=== PATIENT | female | born 1955 | race Hispanic/Latino ===

== ENCOUNTER → 2018-03-26 | Outpatient (CLI) | payer BC | END | disposition home or self-care (01) | LOC: RAH 07:23 | DX: R92.2 Inconclusive mammogram (principal); Z80.3 Family history of malignant neoplasm of breast | CPT/HCPCS: 77066 ==

== ENCOUNTER → 2018-06-17 | Outpatient (CLI) | payer BC | END | disposition home or self-care (01) | LOC: SHCH 13:46 | PROVIDERS: ATTEND Internal Medicine Cardiovascular Disease | DX: R06.02 Shortness of breath (principal); R00.2 Palpitations | CPT/HCPCS: 93306 ==

== ENCOUNTER → 2018-06-18 | Outpatient (CLI) | payer BC ==
[~2018-06-18] MED LIST: REGADENOSON 0.4 MG/5 ML PF SYG IVP SCH
== END | disposition home or self-care (01) ==
LOC: SHCH 08:43
PROVIDERS: ATTEND Internal Medicine Cardiovascular Disease
DX: I48.91 Unspecified atrial fibrillation (principal)
CPT/HCPCS: 78452; 93017; 96374; A9500 ×2

== ENCOUNTER 2018-07-01 05:45 | Day surgery (SDC) | payer BC ==
[2018-06-28 16:14] VITALS: BP 149/66
[2018-06-28 16:21] LABS: BASOPHILS % (AUTO) 0.3 % (0.0-5.0); EOSINOPHILS % (AUTO) 1.7 % (0.0-8.0); HEMATOCRIT 36.9 % (36-48); LYMPHOCYTES % (AUTO) 23.4 % (21.0-51.0); MEAN CORPUSCULAR HEMOGLOBIN 29.6 pg (27.0-33.0); MEAN CORPUSCULAR HGB CONC 33.7 g/dL (32.0-36.0); MEAN CORPUSCULAR VOLUME 87.8 fL (79-99); MONOCYTES % (AUTO) 7.5 % (3.0-13.0); NEUTROPHILS % (AUTO) 67.1 % (40.0-77.0); PLATELET COUNT (AUTO) 185 K/uL (130-400); RED CELL DISTRIBUTION WIDTH 13.1 % (11.0-15.5); WHITE BLOOD COUNT (AUTO) 5.5 K/uL (4.8-10.8)
[2018-06-28 16:30] LABS: CREATININE 0.8 mg/dL (0.5-1.5); POTASSIUM 3.8 mmol/L (3.5-5.1)
[2018-06-28 16:30] LABS: APPEARANCE,URINE Clear (CLEAR); BILIRUBIN,URINE Negative (NEGATIVE); COLOR,URINE Yellow (YELLOW); GLUCOSE, URINE (UA) Negative (NEGATIVE); KETONES,URINE Negative (NEGATIVE); LEUKOCYTE ESTERASE ,URINE Trace (NEGATIVE); NITRATE,URINE Negative (NEGATIVE); OCCULT BLOOD,URINE Negative (NEGATIVE); PH,URINE 6.5 (5.0-8.0); PROTEIN,URINE Negative (NEGATIVE); UROBILINOGEN,URINE 0.2 mg/dL (0.2-1.0)
[2018-06-28 16:34] LABS: INR 0.99 (0.85-1.15); PARTIAL THROMBOPLASTIN TIME 29.6 SEC (26.3-35.5); PROTHROMBIN TIME 10.4 SEC (9.6-11.6)
[2018-06-28 17:02] LABS: BACTERIA,URINE None Seen /HPF (None Seen); RBC,URINE 0-1 /HPF (0-1); SQUAMOUS EPITHELIAL CELL,UR None Seen /HPF (0-2); WBC,URINE 0-1 /HPF (0-1)
[~2018-07-01] VITALS: Ht 165.1 cm; Wt 63.9 kg
[2018-07-01] VITALS (9 sets, daily range): BP systolic 103–146; BP diastolic 54–71
[~2018-07-01 05:45] MED LIST changes: +LEVO75TA4 PO; +LORA1TAB3 PO; +PLEC3TAB PO; -REGADENOSON 0.4 MG/5 ML PF SYG IVP SCH; +ROSU10TA PO; +VITA-300 PO
[2018-07-01] MEDS ORDERED: SODIUM CHLORIDE 0.9% 1000ML 1,000 ML IV ONE (06:15)
--- NOTE | 2018-07-01 07:08 | NUR ---
ASSESSMENT PT HERE FOR PROCEDURE. PT VERY ANXIOUS. HAS REDNESS TO LEFT EYE. STATES " BLEW NOSE YESTERDAY AND THIS HAPPENED."
[2018-07-01] MEDS ORDERED: IOHEXOL-350 50ML VIAL IV ONE (07:18)
[2018-07-01] MEDS ORDERED: IOHEXOL 350 MG/ML 100ML INFUS..BTL IV ONE (07:18)
[2018-07-01] MEDS ORDERED: LIDOCAINE HCL 2% 20ML ONE (07:18)
--- NOTE | 2018-07-01 07:20 | NUR ---
PROCEDURE PT TAKEN TO PROCEDURE VIA BED BY Adali DOUGLAS RN. SISTER IN ROOM.
[2018-07-01] MEDS ORDERED: MIDAZOLAM HCL 1 MG/ML 2ML VIAL ONE (07:33)
--- NOTE | 2018-07-01 08:10 | NUR ---
ASSESSMENT RECEIVED PT FROM Adali DOUGLAS RN. PT LYING FLAT. SITE TO RIGHT GROIN SOFT TO TOUCH. NO BLEEDING, OOZING NOTED TO SITE. INSTRUCTED ON IMPORTANCE OF KEEPING RIGHT LEG STRAIGHT AND NOT LIFTING HEAD OFF OF BED. SISTER AT BEDSIDE. BOTH VERBALIZED UNDERSTANDING.
--- NOTE | 2018-07-01 09:15 | NUR ---
PAIN PT STATES AFTER SHE ATE SHE FEELS HEAVINESS TO MIDEPIGASTRIC. STATES SHE FEELS LIKE THAT AFTER SHE EATS. NO SOB, CHEST PAIN, EKG CHANGES NOTED. INFORMED DR. GUO. NO ORDERS RECEIVED.
--- NOTE | 2018-07-01 10:31 | NUR ---
DISCHARGE ORAL AND WRITTEN DISCHARGE INSTRUCTIONS GIVEN TO PT AND PTS SISTER. BOTH VERBALIZED UNDERSTANDING. NO OTHER QUESTIONS AT THIS TIME.
--- NOTE | 2018-07-01 12:00 | NUR ---
DISCHARGE ORAL AND WRITTEN DISCHARGE INSTRUCTIONS GIVEN. PT WHEELED OUT TO CAR. SITE SOFT TO TOUCH TO RIGHT GROIN. DISCHARGED.
== END 2018-07-01 12:00 | disposition home or self-care (01) ==
LOC: DAH 05:45
PROVIDERS: ATTEND Internal Medicine Cardiovascular Disease
DX: I20.8 Other forms of angina pectoris (principal); R07.9 Chest pain, unspecified; E78.00 Pure hypercholesterolemia, unspecified; Z79.899 Other long term (current) drug therapy; F41.9 Anxiety disorder, unspecified; Z98.890 Other specified postprocedural states; E78.5 Hyperlipidemia, unspecified
CPT/HCPCS: 36415; 71045; 80048; 81001; 85025; 85610; 85730; 93005; 93458; A4606; C1760; C1894; J1644; J2250; J3490; J7030; Q9965; Q9967 ×2; 99156; 99157

== ENCOUNTER → 2019-03-27 | Outpatient (CLI) | payer BC ==
[~2019-03-27] MED LIST changes: -ROSU10TA PO; +ROSU10TA22 PO
== END | disposition home or self-care (01) ==
LOC: RAH 08:12
DX: R92.2 Inconclusive mammogram (principal); Z80.3 Family history of malignant neoplasm of breast
CPT/HCPCS: 77066

== ENCOUNTER → 2020-04-23 | Outpatient (CLI) | payer BC ==
[~2020-04-23] MED LIST changes: -PLEC3TAB PO; +PLEC3TAB2 PO
== END | disposition home or self-care (01) ==
LOC: RAH 09:59
DX: R92.2 Inconclusive mammogram (principal); Z80.3 Family history of malignant neoplasm of breast; N64.4 Mastodynia; N64.89 Other specified disorders of breast
CPT/HCPCS: 77066

== ENCOUNTER → 2022-09-08 | Outpatient (CLI) | payer MEDICARE | END | disposition home or self-care (01) | LOC: CANPRECLI → SHCH 07:33 | PROVIDERS: ATTEND Internal Medicine Cardiovascular Disease | DX: I71.40 Abdominal aortic aneurysm, without rupture, unspecified (principal) | CPT/HCPCS: 93978 ==

== ENCOUNTER 2023-01-23 20:37 | Emergency (ER) | payer MEDICARE ==
[~2023-01-23] VITALS: Ht 165.1 cm; Wt 62.6 kg
[2023-01-23 20:56] LABS: BASOPHILS # (AUTO) 0.03 K/uL (0.00-0.20); BASOPHILS % (AUTO) 0.2 % (0.0-5.0); EOSINOPHILS # (AUTO) 0.04 K/uL (0.00-0.70); EOSINOPHILS % (AUTO) 0.3 % (0.0-8.0); HEMATOCRIT 35.7 % (36-48); IMMATURE GRANULOCYTE ABSOLUTE 0.05 K/uL (0-1); LYMPHOCYTES % (AUTO) 7.8 % (21.0-51.0); MEAN CORPUSCULAR HEMOGLOBIN 29.6 pg (27.0-33.0); MEAN CORPUSCULAR VOLUME 84.4 fL (79-99); MONOCYTES % (AUTO) 7.5 % (3.0-13.0); NEUTROPHILS # (AUTO) 11.2 K/uL (1.8-7.7); NEUTROPHILS % (AUTO) 83.8 % (40.0-77.0); PLATELET COUNT (AUTO) 242 K/uL (130-400); RED BLOOD CELL COUNT(AUTO) 4.23 MIL/uL (4.00-5.50); RED CELL DISTRIBUTION WIDTH 13.2 % (11.0-15.5); WHITE BLOOD COUNT (AUTO) 13.3 K/uL (4.8-10.8)
[2023-01-23] MEDS ORDERED: MORPHINE 2 MG SYG IVP ONE (21:00)
[2023-01-23 21:08] LABS: INR 0.95 (0.85-1.15); PROTHROMBIN TIME 11.1 SEC (9.6-11.6)
[2023-01-23 21:10] LABS: PARTIAL THROMBOPLASTIN TIME 30.6 SEC (26.3-35.5)
[2023-01-23 21:12] LABS: ALBUMIN 3.9 g/dL (3.5-5.0); CREATININE 0.8 mg/dL (0.5-1.5); POTASSIUM 3.3 mmol/L (3.5-5.1); TOTAL PROTEIN, SERUM 7.4 g/dL (6.0-8.3)
[2023-01-23] MEDS ORDERED: ONDANSETRON 4MG INJ ONE (21:19)
[2023-01-23] MEDS ORDERED: ONDANSETRON 4MG INJ IVP ONE (21:30)
[2023-01-23] MEDS ORDERED: IOHEXOL 350 MG/ML 100ML INFUS..BTL IV ONE (21:44)
[2023-01-23 22:54] LABS: APPEARANCE,URINE CLEAR (CLEAR); BILIRUBIN,URINE NEGATIVE (NEGATIVE); COLOR,URINE Light-Yellow (YELLOW); GLUCOSE, URINE (UA) NEGATIVE (NEGATIVE); KETONES,URINE 5 mg/dL (NEGATIVE); LEUKOCYTE ESTERASE ,URINE 25 Leu/uL (NEGATIVE); MUCUS,URINE RARE LPF (None Seen); NITRATE,URINE NEGATIVE (NEGATIVE); OCCULT BLOOD,URINE NEGATIVE (NEGATIVE); PROTEIN,URINE NEGATIVE (NEGATIVE); RBC,URINE 0-1 /HPF (0-1); SQUAMOUS EPITHELIAL CELL,UR RARE /HPF (0-2); UROBILINOGEN,URINE 0.2 mg/dL (0.2-1.0)
[2023-01-23] MEDS ORDERED: POTASSIUM BICARB/CIT AC 25 MEQ TABLET.EFF PO ONE (23:30)
[2023-01-24 00:19] VITALS: BP 130/74; PULSE 88; RESP 16; O2SAT 99
== END 2023-01-24 00:21 | disposition home or self-care (01) ==
LOC: EDH 20:37
DX: R07.89 Other chest pain (principal); F41.9 Anxiety disorder, unspecified; E87.6 Hypokalemia; E78.00 Pure hypercholesterolemia, unspecified; Z79.890 Hormone replacement therapy; Z85.3 Personal history of malignant neoplasm of breast; Z90.710 Acquired absence of both cervix and uterus
CPT/HCPCS: 99285; 74177; 96374; 71045; 96375; 84484; 80053; 83690; 85025; 85610; 85730; 81001; 36415; 93005; J2270; J2405; Q9967

== ENCOUNTER → 2023-06-18 | Outpatient (CLI) | payer MEDICARE ==
[~2023-06-18] MED LIST changes: +IOHEXOL-350 75 ML VIAL IV ONE
== END | disposition home or self-care (01) ==
LOC: RAH 08:45
PROVIDERS: ATTEND Internal Medicine Gastroenterology
DX: R93.2 Abnormal findings on diagnostic imaging of liver and biliary tract (principal); R11.0 Nausea; Z90.49 Acquired absence of other specified parts of digestive tract
CPT/HCPCS: 74170; Q9967

== ENCOUNTER 2024-01-29 10:29 | Emergency (ER) | payer MEDICARE ==
[~2024-01-29] VITALS: Ht 165.1 cm; Wt 61.7 kg
[~2024-01-29 10:29] MED LIST changes: -IOHEXOL-350 75 ML VIAL IV ONE
[2024-01-29] MEDS: TRIAMCINOLONE ACETONIDE 40 MG/ML 1ML VIAL SQ STA (11:21)
[2024-01-29] MEDS: ketOROlac 15MG/ML VIAL (15MG/ML) IM STA (11:21)
[2024-01-29] MEDS: ORPHENADRINE 60MG/2ML IM STA (11:21)
[2024-01-29] MEDS ORDERED: ACET-2743 PO (12:45)
[2024-01-29 13:18] VITALS: BP 132/70; PULSE 84; RESP 20; TEMP 98.4; O2SAT 98
== END 2024-01-29 13:19 | disposition home or self-care (01) ==
LOC: EDH 10:29
DX: M47.816 Spondylosis without myelopathy or radiculopathy, lumbar region (principal); M54.40 Lumbago with sciatica, unspecified side; E03.9 Hypothyroidism, unspecified; E78.00 Pure hypercholesterolemia, unspecified; F41.9 Anxiety disorder, unspecified; Z79.890 Hormone replacement therapy; Z90.49 Acquired absence of other specified parts of digestive tract; Z90.710 Acquired absence of both cervix and uterus; Z98.890 Other specified postprocedural states
CPT/HCPCS: 99285; 72131; 96372 ×3; J3301; J1885; J2360

== ENCOUNTER → 2024-03-14 | Outpatient (CLI) | payer OTHER ==
[~2024-03-14] MED LIST changes: +ACET-2743 PO
== END | disposition home or self-care (01) ==
LOC: RAH 12:06
PROVIDERS: ATTEND Internal Medicine Cardiovascular Disease
DX: Z13.6 Encounter for screening for cardiovascular disorders (principal)
CPT/HCPCS: 75571

== ENCOUNTER → 2024-03-29 | Outpatient (CLI) | payer MEDICARE | END | disposition home or self-care (01) | LOC: SHCH 13:54 | PROVIDERS: ATTEND Internal Medicine Cardiovascular Disease | DX: G45.9 Transient cerebral ischemic attack, unspecified (principal) | CPT/HCPCS: 93880 ==